=== PATIENT | female | born 1980 | race African-American/Black ===

== ENCOUNTER 2018-01-06 08:35 | Emergency (ER) | payer MEDICAID ==
[~2018-01-06] VITALS: Ht 172.7 cm; Wt 133.0 kg
[2018-01-06] MEDS ORDERED: SODIUM CHLORIDE 0.9% 1,000 ML IV ONE (09:06)
[2018-01-06] MEDS ORDERED: ACETAMINOPHEN 325MG TABLET PO PRN (09:15)
[2018-01-06 09:51] LABS: CHLORIDE 107 mEq/L (98-107)
[2018-01-06 09:52] LABS: PROTHROMBIN TIME 9.7 sec (9.1-11.1)
[2018-01-06 09:53] LABS: BASOPHILS % 0.3 % (0.0-2.0); EOSINOPHILS % 3.2 % (0.0-5.0); HEMATOCRIT. 36.3 % (36.0-48.0); HEMOGLOBIN. 12.2 g/dL (12.0-16.0); LYMPHOCYTES % 23.2 % (20.0-50.0); MEAN CORPUSCULAR VOLUME 86.2 fL (81.0-99.0); MEAN PLATELET VOLUME 8.5 fl (7.4-10.4); MONOCYTES % 8.1 % (2.0-8.0); NEUTROPHILS % 65.2 % (40.0-76.0); PLATELET 232 x1000/uL (130-400); RED BLOOD CELL COUNT 4.21 mill/uL (4.2-5.4); RED CELL DISTRIBUTION WIDTH 12.5 % (11.6-14.6)
[2018-01-06 09:54] LABS: CLARITY URINE CLEAR (CLEAR); COLOR URINE YELLOW (YELLOW); KETONES URINE TRACE (NEGATIVE); LEUKOCYTE ESTERASE URINE NEGATIVE (NEGATIVE); NITRITE URINE NEGATIVE (NEGATIVE); OCCULT BLOOD URINE TRACE (NEGATIVE); PROTEIN URINE NEGATIVE (NEGATIVE); SPECIFIC GRAVITY URINE 1.031 (1.005-1.030)
[2018-01-06 10:16] LABS: B-HCG QUANTITATIVE 74978 mIU/mL (<3)
[2018-01-06 12:32] VITALS: BP 126/88
== END 2018-01-06 12:49 | disposition home or self-care (01) ==
LOC: ER 08:58
DX: O20.0 Threatened abortion (principal); Z3A.10 10 weeks gestation of pregnancy
CPT/HCPCS: 36415; 76801; 76817; 80053; 81003; 81025; 84702; 85025; 85610; 86850; 86900; 86901; 96360; 96361; 99285; J7030; Z7610

== ENCOUNTER 2018-02-09 03:52 | Emergency (ER) | payer MEDICAID ==
[~2018-02-09] VITALS: Ht 175.3 cm; Wt 127.0 kg
[2018-02-09 05:45] VITALS: BP 137/81
== END 2018-02-09 06:39 | disposition left against medical advice (07) ==
LOC: ER 03:52
DX: M54.5 Low back pain (principal); Z53.21 Procedure and treatment not carried out due to patient leaving prior to being seen by health care provider

== ENCOUNTER 2018-03-10 00:20 | Observation (INO) | payer MEDICAID ==
[~2018-03-10] VITALS: Ht 170.2 cm; Wt 127.9 kg
[2018-03-10] MEDS ORDERED: LACTATED RINGERS 1,000 ML IV SCH ×2 (00:31→01:00)
[2018-03-10 01:05] LABS: CLARITY URINE CLOUDY (CLEAR); COLOR URINE YELLOW (YELLOW); KETONES URINE TRACE (NEGATIVE); LEUKOCYTE ESTERASE URINE NEGATIVE (NEGATIVE); NITRITE URINE NEGATIVE (NEGATIVE); OCCULT BLOOD URINE 1+ (NEGATIVE); PROTEIN URINE NEGATIVE (NEGATIVE); SPECIFIC GRAVITY URINE 1.014 (1.005-1.030); UROBILINOGEN URINE 0.2 E.U./dL (0.2-1.0)
[2018-03-10] MEDS ORDERED: ACETAMINOPHEN 500MG TABLET PO NR (01:30)
[2018-03-10] MEDS ORDERED: PREN1TAB78 MT (01:30)
== END 2018-03-10 02:14 | disposition home or self-care (01) ==
LOC: L&D 00:20
PROVIDERS: ADMIT Obstetrics & Gynecology; ATTEND Obstetrics & Gynecology
DX: O26.892 Other specified pregnancy related conditions, second trimester (principal); R10.30 Lower abdominal pain, unspecified; Z3A.20 20 weeks gestation of pregnancy
CPT/HCPCS: 81003; 99281; G0378; 96360; J7120